=== PATIENT | male | born 1955 | race Caucasian/White ===

== ENCOUNTER → 2020-11-23 | Outpatient (CLI) | payer OTHER ==
--- NOTE | 2020-11-23 11:21 | RAD ---
INDICATION: Reason: COUGH X 3 WEEKS / Spl. Instructions: / History: COMPARISON: None. FINDINGS: 2 view of chest obtained. Degenerative changes of the spine. Cardiac silhouette is unremarkable. Blunting of the costophrenic angles posteriorly. Patchy opacities in the bilateral lungs IMPRESSION: * Patchy opacities bilateral lungs could be secondary to bilateral infiltrate or edema. There is als o suspected small pleural effusions. Electronically signed by: Jakob Danielle MD (11/23/2020 11:19 AM) [id number]
== END ==
LOC: RAD 10:45
PROVIDERS: ATTEND Nurse Practitioner Family
DX: R05 Cough (principal)
CPT/HCPCS: 71046

== ENCOUNTER 2020-12-11 10:12 | Inpatient (IN) | payer OTHER ==
[~2020-12-11] VITALS: Ht 172.7 cm; Wt 87.4 kg
[2020-12-11] MEDS ORDERED: IOHEXOL 350 MG/ML 100 ML VIAL. IV ONE (10:30)
[2020-12-11] MEDS ORDERED: ASPIRIN 325 MG TABLET PO ONE (10:30)
--- NOTE | 2020-12-11 10:47 | EKG ---
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
[2020-12-11 10:54] LABS: CALCIUM 8.8 mg/dL (8.5-10.1); GFR 75.5; POTASSIUM 4.2 mmol/L (3.5-5.1)
[2020-12-11 10:55] LABS: BASO % 0 % (0-3); EOS % 0 % (0-3); HEMATOCRIT 44.1 % (39.0-53.0); HEMOGLOBIN 14.5 g/dL (13.0-17.5); LYMPH # 1.3 x10^3/uL (1.0-4.8); LYMPH % 21 % (24-48); MEAN CORPUSCULAR HEMOGLOBIN 33 pg (25-35); MEAN CORPUSCULAR HGB CONC 33 g/dL (31-37); MEAN CORPUSCULAR VOLUME 102 fL (79-100); MONO # 0.3 x10^3/uL (0.0-1.1); MONO % 5 % (0-9); NEUT # 4.7 x10^3uL (1.8-7.7); NEUT % 74 % (31-73); PLATELET COUNT 160 x10^3/uL (140-400); RED BLOOD COUNT 4.35 x10^6/uL (4.30-5.70); RED CELL DISTRIBUTION WIDTH 14.6 % (11.5-14.5); WHITE BLOOD COUNT 6.4 x10^3/uL (4.0-11.0)
--- NOTE | 2020-12-11 11:03 | PHYS DOC ---
Past History Past Medical History: No Pertinent History Past Surgical History: No Surgical History Smoking: Non-smoker Alcohol Use: None Drug Use: None General Adult EDM: Chief Complaint: SHORTNESS OF BREATH HPI: HPI: Patient is a 65 year old male who presents with 6 week history of shortness of breath and worsening dyspnea on exertion. He states he is now unable to walk across the room without becoming short of breath, however symptoms improve with rest. Patient is now having orthopnea and has been sleeping in his recliner for the past 2 days. He has also noticed some swelling in his bilateral lower extremities. Reports worsening cough as well with production of white sputum. He was diagnosed with pneumonia 3 weeks ago at an urgent care and was discharged with oral steroids and an antibiotic at that time. Reports taking all doses of the antibiotic. Denies fevers, chills, chest pain, or hemoptysis. Review of Systems: Review of Systems: Constitutional: Denies fever or chills Eyes: Denies redness or eye pain HENT: Denies nasal congestion or sore throat Respiratory: Reports shortness of breath, productive cough, dyspnea on exertion, and orthopnea. Cardiovascular: Denies chest pain or palpitations GI: Denies abdominal pain, nausea, or vomiting : Denies dysuria or hematuria Musculoskeletal: Reports bilateral LE swelling. Denies back pain or joint pain Integument: Denies rash or skin lesions Neurologic: Denies headache, focal weakness or sensory changes Complete systems were reviewed and found to be within normal limits, except as documented in this note. Current Medications: Current Meds: Current Medications Medications (Trade) Dose Ordered Sig/Dean Start Time Stop Time Status Last Admin Dose Admin Aspirin (Phil Aspirin) 325 mg 1X ONCE 12/11/20 10:30 12/11/20 10:37 DC 12/11/20 10:32 325 MG Iohexol (Omnipaque 350 Mg/ml) 100 ml 1X ONCE 12/11/20 10:30 12/11/20 10:37 DC Allergies: Allergies: Allergies Coded Allergies Type Severity Reaction Last Updated Verified No Known Drug Allergies 12/11/20 No Physical Exam: PE: Constitutional: Well developed, well nourished, no acute distress, non-toxic appearance HENT: Normocephalic, atraumatic Eyes: Conjunctiva normal, no discharge Neck: Normal range of motion, no tenderness, supple Lungs & Thorax: Decreased lung sounds at bilateral bases. No respiratory distress, equal chest rise and fall Abdomen: Soft, no tenderness Skin: Warm, dry, no erythema, no rash Back: No tenderness, no CVA tenderness Extremities: 2+ pitting edema in bilateral LE. No tenderness, ROM intact. Neurologic: Alert and oriented X 3, normal motor function, normal sensory function, no focal deficits noted Psychologic: Affect normal, judgment normal Current Patient Data: Vital Signs: Vital Signs Date Time Temp Pulse Resp B/P (MAP) Pulse Ox O2 Delivery O2 Flow Rate FiO2 12/11/20 10:23 98.0 115 34 129/82 97 Room Air EKG: EK BPM, normal sinus rhythm, no ST elevation, QRS 102ms. QTc 469ms Radiology/Procedures: Radiology/Procedures: PROCEDURE: CT ANGIOGRAPHY CHEST Exam Date: 12/11/2020 10:45 AM CTA CHEST Indication: Reason: SOA X 1 MONTH eval for PE / Spl. Instructions: / History: . TECHNIQUE: CT angiogram of the chest was performed following the administration of nonionic intravenous contrast for evaluation of pulmonary embolus. 3D MIPs were created and reviewed on an independent workstation to assist in diagnosis and clinical management. One or more of the following dose reduction techniques were utilized: *Automated exposure control (AEC) *Adjustment of mA and/or kV according to patient size *Use of iterative reconstruction technique *CT scan done according to ALARA, or ALARA/IMAGE GENTLY COMPARISON: Radiographs from November 23, 2020 FINDINGS: There is adequate opacification of the pulmonary arteries. No central intravascular filling defects are appreciated. There is no evidence for central pulmonary embolus. The aorta is normal in caliber without evidence for dissection. Aortic calcifications are present. The heart is normal in size without pericardial effusion. Coronary artery calcifications are present. The visualized thyroid gland is within normal limits. No lymphadenopathy is seen. There are moderate bilateral pleural effusions, right larger than left, with compressive atelectasis of the lower lobes. Mild emphysematous changes are noted. No pneumothorax. The central airways are patent. Images of the upper abdomen demonstrate calcified granulomas in the spleen. Degenerative changes are seen in the spine. IMPRESSION: No evidence for central pulmonary embolus. Electronically signed by: Konstantin Coughlin MD (12/11/2020 11:29 AM) [id number] Heart Score: C/O Chest Pain: N/A Course & Med Decision Making: Course & Med Decision Making Pertinent Labs and Imaging studies reviewed. (See chart for details) 65 year old male presents with 6 week history of shortness of breath. EKG stable. Labs obtained and posted to chart. Troponin WNL. BNP >5000 and CTA revealed bilateral pleural effusions consistent with concern for new onset CHF. Patient started on IV Lasix while in the ED. Patient requiring admission for further evaluation and treatment. Discussed with Dr. Hollins (hospitalist) who is in agreement with admission. Discussed findings and plan with patient and friend, who acknowledge understanding and agreement. Dragon Disclaimer: Dragon Disclaimer: This electronic medical record was generated, in whole or in part, using a voice recognition dictation system. Departure Departure: Impression: Primary Impression: Dyspnea Qualified Codes: R06.00 - Dyspnea, unspecified Additional Impressions: Elevated brain natriuretic peptide (BNP) level Pleural effusion Disposition: ADMITTED INPATIENT Admitting Physician: Benny Hollins Condition: STABLE Referrals: PCP,UNKNOWN (PCP) MALIK ORNELAS DO Dec 11, 2020 11:03
[2020-12-11 11:08] LABS: ALBUMIN 3.4 g/dL (3.4-5.0); MAGNESIUM 1.9 mg/dL (1.8-2.4); TOTAL PROTEIN 6.8 g/dL (6.4-8.2)
--- NOTE | 2020-12-11 11:32 | RAD ---
Exam Date: 12/11/2020 10:45 AM CTA CHEST Indication: Reason: SOA X 1 MONTH eval for PE / Spl. Instructions: / History: . TECHNIQUE: CT angiogram of the chest was performed following the administration of nonionic intrave nous contrast for evaluation of pulmonary embolus. 3D MIPs were created and reviewed on an [employer] workstation to assist in diagnosis and clinical management. One or more of the following dose red uction techniques were utilized: *Automated exposure control (AEC) *Adjustment of mA and/or kV according to patient size *Use of iterative reconstruction technique *CT scan done according to ALARA, or ALARA/IMAGE GENTLY COMPARISON: Radiographs from November 23, 2020 FINDINGS: There is adequate opacification of the pulmonary arteries. No central intravascular filling defects are appreciated. There is no evidence for central pulmonary embolus. The aorta is normal in caliber without evidence for dissection. Aortic calcifications are present. The heart is normal in size without pericardial effusion. Coronary artery calcifications are present . The visualized thyroid gland is within normal limits. No lymphadenopathy is seen. There are moderate bilateral pleural effusions, right larger than left, with compressive atelectasis of the lower lobes. Mild emphysematous changes are noted. No pneumothorax. The central airways are patent. Images of the upper abdomen demonstrate calcified granulomas in the spleen. Degenerative changes are seen in the spine. IMPRESSION: No evidence for central pulmonary embolus. Electronically signed by: Konstantin Coughlin MD (12/11/2020 11:29 AM) [id number]
[2020-12-11] MEDS ORDERED: FUROSEMIDE 40 MG/4 ML VIAL IVP ONE ×2 (11:45→12:15)
[2020-12-11 13:03] VITALS: BP 122/83
--- NOTE | 2020-12-11 14:09 | HP ---
ADMIT DATE: 12/11/2020 ATTENDING PHYSICIAN: Dr. Hollins. CHIEF COMPLAINT: Shortness of breath. HISTORY OF PRESENT ILLNESS: The patient is a 65-year-old gentleman with no local physician. He presents to the ED with a gradual worsening symptoms of ____ dyspnea with exertion also at rest, significant orthopnea, pedal edema, increased abdominal girth and a nonproductive cough. He had a CT done in the ED, which showed cardiomegaly, bilateral pleural effusions. He also has pedal edema and clinically appears well. He was given IV Lasix. His BNP is elevated. He is admitted then with exacerbation of CHF that is new. PAST MEDICAL HISTORY: Significant for significant alcohol use. He downplays it but he probably drinks on a regular basis. In addition, he is a smoker packs of cigarettes or more daily. He is not on any medications. He denies any chest pain, palpitations. He has not been able to sleep at night. ALLERGIES: He has no recorded drug allergies. FAMILY HISTORY: Mom is still alive at age 80. Father is of unknown causes. He is employed at [employer]. He is and lives with his . REVIEW OF SYSTEMS: Significant for the pedal edema, dyspnea with minimal exertion, dry nonproductive cough. He has orthopnea. He has been sleeping in a chair, unable to lay flat. No nausea or vomiting. He denied any palpitations, syncope. All other systems reviewed and turned to be negative. PHYSICAL EXAMINATION: GENERAL: When I saw him, this is a pleasant middle-aged gentleman. INITIAL VITAL SIGNS: Showed a blood pressure of 123/88. He is afebrile, pulse 110 and regular, oxygen saturation 96% on room air. HEENT: Head is without trauma. Pupils are reactive. Sclerae are nonicteric. Oropharynx is clear. NECK: Supple, no bruits identified. LUNGS: Show diminished breath sounds at both bases. Good airway movement of upper airways. CARDIOVASCULAR: Showed distant heart tones. No obvious gallops. Peripheral pulses are palpable and full. ABDOMEN: Obese, protuberant. No organomegaly. Bowel sounds were hypoactive. EXTREMITIES: Showed no cyanosis or edema. He does have 2+ pitting edema extending all the way up to past his knee. SKIN: Warm and dry. NEUROLOGIC: Function focally intact. PERTINENT LABORATORY STUDIES: Hemoglobin is 14.5 g/dL, white count 6400. MCV is 102 consistent with chronic alcohol use. Nonfasting blood sugar 244. Electrolytes within normal range. Creatinine is 1.0 mg percent. Troponin first set was 0.02, below the limits of normal. BNP was 5000. CT of the chest as noted. ASSESSMENT: 1. A 65-year-old gentleman with congestive heart failure, acute. 2. Probable alcoholic cardiomyopathy, the so-called holiday heart syndrome. 3. Chronic alcoholism. 4. Chronic obstructive pulmonary disease with tobacco addiction. 5. Diabetes by exam type 2. PLAN: 1. Admit to the inpatient unit. 2. Diuresis with Lasix twice a day. 3. Daily weights. 4. Fluid restriction. 5. Afterload and preload reduction in the form of Lasix and lisinopril. 6. Followup blood sugars. 7. Serial chemistries. 8. Echocardiogram. DIMPLE/BRY DR: Ze TID: [id number]
[2020-12-11 15:03] VITALS: BP 114/78
--- NOTE | 2020-12-11 17:13 | PDOC2 ---
CONSULT DOS: DATE: 12/11/20 TIME: 17:06 Reason for Consult: Congestive heart failure Referring Physician: Dr. Hollins Chief Complaint Shortness of breath Source: Chart review, Patient Problem List Problems Medical Problems: (1) Acute CHF Status: Acute (2) Dyspnea Status: Acute (3) Elevated brain natriuretic peptide (BNP) level Status: Acute (4) Pleural effusion Status: Acute History of Present Illness 65-year-old male without any previous cardiac history presented with approximately 6 weeks history of progressive shortness of breath on exertion. Lately, he has been having orthopnea and bilateral lower extremity edema. He denied any chest pain, palpitations or syncope. Of note, he was diagnosed with pneumonia 3 weeks ago at an urgent care center and prescribed steroids and antibiotics. Past Medical History Alcohol abuse Past Surgical History: No pertinent history Family History Negative for premature coronary artery disease Social History Patient admitted to drinking approximately 18 pack beers per week, mostly binging and then giving gaps, smoking cigarettes but denied any drug abuse. Current Medications Current Medications Aspirin (Phil Aspirin) 325 mg 1X ONCE PO Last administered on 12/11/20at 10:32; Start 12/11/20 at 10:30; Stop 12/11/20 at 10:37; Status DC Iohexol (Omnipaque 350 Mg/ml) 100 ml 1X ONCE IV Last administered on 12/11/20at 10:58; Start 12/11/20 at 10:30; Stop 12/11/20 at 10:37; Status DC Furosemide (Lasix) 40 mg 1X ONCE IVP Last administered on 12/11/20at 11:50; Start 12/11/20 at 11:45; Stop 12/11/20 at 11:46; Status DC Furosemide (Lasix) 80 mg 1X ONCE IVP Last administered on 12/11/20at 13:06; Start 12/11/20 at 12:15; Stop 12/11/20 at 12:16; Status DC Furosemide (Lasix) 80 mg BID IVP ; Start 12/11/20 at 21:00 Potassium Chloride (Klor-Con) 20 meq BID PO ; Start 12/11/20 at 21:00 Lisinopril (Prinivil) 10 mg DAILY PO ; Start 12/12/20 at 09:00 Allergies: Coded Allergies: No Known Drug Allergies (Unverified , 12/11/20) PSYCHOLOGICAL ROS: No: Hallucinations Eyes: No: Loss of vision HEENT: No: Epistaxis Respiratory: YES: Orthopnea, Shortness of breath; No: Hemoptysis Cardiovascular: No: Chest Pain Gastrointestinal: No: Vomiting Genitourinary: No: Henaturia Neurological: No: Seizures Skin: No: Rash General: Alert HEENT: Atraumatic Lungs: Other (Decreased air entry bases and bilateral scattered crepitations) Heart: Regular rate Abdomen: Soft Extremities: Other (2+ pitting pedal edema) Neuro: Normal speech VITALS Vital Signs Date Time Temp Pulse Resp B/P (MAP) Pulse Ox O2 Delivery O2 Flow Rate FiO2 12/11/20 16:05 Room Air 12/11/20 15:03 97.7 112 20 114/78 (90) 97 12/11/20 12:25 94.0 Labs Laboratory Tests Test 12/11/20 10:25 12/11/20 16:29 White Blood Count 6.4 x10^3/uL (4.0-11.0) Red Blood Count 4.35 x10^6/uL (4.30-5.70) Hemoglobin 14.5 g/dL (13.0-17.5) Hematocrit 44.1 % (39.0-53.0) Mean Corpuscular Volume 102 fL (79-100) Mean Corpuscular Hemoglobin 33 pg (25-35) Mean Corpuscular Hemoglobin Concent 33 g/dL (31-37) Red Cell Distribution Width 14.6 % (11.5-14.5) Platelet Count 160 x10^3/uL (140-400) Neutrophils (%) (Auto) 74 % (31-73) Lymphocytes (%) (Auto) 21 % (24-48) Monocytes (%) (Auto) 5 % (0-9) Eosinophils (%) (Auto) 0 % (0-3) Basophils (%) (Auto) 0 % (0-3) Neutrophils # (Auto) 4.7 x10^3uL (1.8-7.7) Lymphocytes # (Auto) 1.3 x10^3/uL (1.0-4.8) Monocytes # (Auto) 0.3 x10^3/uL (0.0-1.1) Eosinophils # (Auto) 0.0 x10^3/uL (0.0-0.7) Basophils # (Auto) 0.0 x10^3/uL (0.0-0.2) Sodium Level 137 mmol/L (136-145) Potassium Level 4.2 mmol/L (3.5-5.1) Chloride Level 101 mmol/L (98-107) Carbon Dioxide Level 26 mmol/L (21-32) Anion Gap 10 (6-14) Blood Urea Nitrogen 11 mg/dL (8-26) Creatinine 1.0 mg/dL (0.7-1.3) Estimated GFR (Cockcroft-Gault) 75.5 BUN/Creatinine Ratio 11 (6-20) Glucose Level 244 mg/dL (70-99) Calcium Level 8.8 mg/dL (8.5-10.1) Magnesium Level 1.9 mg/dL (1.8-2.4) Total Bilirubin 1.0 mg/dL (0.2-1.0) Aspartate Amino Transf (AST/SGOT) 21 U/L (15-37) Alanine Aminotransferase (ALT/SGPT) 29 U/L (16-63) Alkaline Phosphatase 115 U/L (46-116) Creatine Kinase 86 U/L (39-308) Creatine Kinase MB (Mass) 2.2 ng/mL (0.0-3.6) Creatine Kinase MB Relative Index 2.6 % (0-4) Troponin I Quantitative 0.024 ng/mL (0-0.055) IS-Ytz-B-Type Natriuretic Peptide 5046 pg/mL (0-124) Total Protein 6.8 g/dL (6.4-8.2) Albumin 3.4 g/dL (3.4-5.0) Albumin/Globulin Ratio 1.0 (1.0-1.7) Lipase 81 U/L (73-393) Glucose (Fingerstick) 171 mg/dL (70-99) Assessment/Plan 1. Congestive heart failure, most probably acute on chronic systolic. Continue diuresis with Lasix. Check 2D echo to assess LV systolic function. Ischemic evaluation in the form of stress test could be considered as an outpatient. 2. Alcohol and tobacco abuse: Advised on complete cessation. Monitor for withdrawal. Thank you for your consultation. ALISE GRESHAM MD Dec 11, 2020 17:13
[2020-12-11 18:53] VITALS: BP 114/79
--- NOTE | 2020-12-11 19:32 | NUR ---
Admission note PT admitted into room 120 via ems at 1250 .
[2020-12-11] MEDS: FUROSEMIDE 40 MG/4 ML VIAL IVP SCH (21:19)
[2020-12-11] MEDS: POTASSIUM CHLORIDE 20 MEQ TABLET.ER. PO SCH (21:19)
[2020-12-11 23:00] VITALS: BP 102/67
[2020-12-12 01:08] LABS: HEMOGLOBIN A1C 8.1 % (4.8-5.6)
[2020-12-12 05:45] VITALS: BP 113/75
[2020-12-12 06:28] LABS: CALCIUM 8.6 mg/dL (8.5-10.1); GFR 75.5; POTASSIUM 3.8 mmol/L (3.5-5.1)
[2020-12-12] MEDS: POTASSIUM CHLORIDE 20 MEQ TABLET.ER. PO SCH (08:39)
[2020-12-12] MEDS: FUROSEMIDE 40 MG/4 ML VIAL IVP SCH (08:41)
--- NOTE | 2020-12-12 08:59 | PDOC ---
CARDIO Progress Notes Date & Time Date of Service DATE: 12/12/20 TIME: 08:57 Time of Evaluation 08:57 Subjective Notes Swelling and SOA improved Vitals Vitals Vital Signs Date Time Temp Pulse Resp B/P (MAP) Pulse Ox O2 Delivery O2 Flow Rate FiO2 12/12/20 08:40 108 113/75 12/12/20 05:45 98.0 18 92 Room Air 12/11/20 12:25 94.0 Weight Weight [ ] Input and Output I.O. Intake and Output 12/12/20 07:00 Intake Total 880 ml Output Total 6400 ml Balance -5520 ml Intake Oral 880 ml Output Urine Total 6400 ml Laboratory Labs Laboratory Tests Test 12/11/20 10:25 12/11/20 16:29 12/11/20 21:34 12/12/20 05:47 White Blood Count 6.4 x10^3/uL (4.0-11.0) Red Blood Count 4.35 x10^6/uL (4.30-5.70) Hemoglobin 14.5 g/dL (13.0-17.5) Hematocrit 44.1 % (39.0-53.0) Mean Corpuscular Volume 102 fL (79-100) Mean Corpuscular Hemoglobin 33 pg (25-35) Mean Corpuscular Hemoglobin Concent 33 g/dL (31-37) Red Cell Distribution Width 14.6 % (11.5-14.5) Platelet Count 160 x10^3/uL (140-400) Neutrophils (%) (Auto) 74 % (31-73) Lymphocytes (%) (Auto) 21 % (24-48) Monocytes (%) (Auto) 5 % (0-9) Eosinophils (%) (Auto) 0 % (0-3) Basophils (%) (Auto) 0 % (0-3) Neutrophils # (Auto) 4.7 x10^3uL (1.8-7.7) Lymphocytes # (Auto) 1.3 x10^3/uL (1.0-4.8) Monocytes # (Auto) 0.3 x10^3/uL (0.0-1.1) Eosinophils # (Auto) 0.0 x10^3/uL (0.0-0.7) Basophils # (Auto) 0.0 x10^3/uL (0.0-0.2) Sodium Level 137 mmol/L (136-145) 143 mmol/L (136-145) Potassium Level 4.2 mmol/L (3.5-5.1) 3.8 mmol/L (3.5-5.1) Chloride Level 101 mmol/L (98-107) 103 mmol/L (98-107) Carbon Dioxide Level 26 mmol/L (21-32) 31 mmol/L (21-32) Anion Gap 10 (6-14) 9 (6-14) Blood Urea Nitrogen 11 mg/dL (8-26) 13 mg/dL (8-26) Creatinine 1.0 mg/dL (0.7-1.3) 1.0 mg/dL (0.7-1.3) Estimated GFR (Cockcroft-Gault) 75.5 75.5 BUN/Creatinine Ratio 11 (6-20) Glucose Level 244 mg/dL (70-99) 129 mg/dL (70-99) Hemoglobin A1c 8.1 % (4.8-5.6) Calcium Level 8.8 mg/dL (8.5-10.1) 8.6 mg/dL (8.5-10.1) Magnesium Level 1.9 mg/dL (1.8-2.4) Total Bilirubin 1.0 mg/dL (0.2-1.0) Aspartate Amino Transf (AST/SGOT) 21 U/L (15-37) Alanine Aminotransferase (ALT/SGPT) 29 U/L (16-63) Alkaline Phosphatase 115 U/L (46-116) Creatine Kinase 86 U/L (39-308) Creatine Kinase MB (Mass) 2.2 ng/mL (0.0-3.6) Creatine Kinase MB Relative Index 2.6 % (0-4) Troponin I Quantitative 0.024 ng/mL (0-0.055) KC-Xre-O-Type Natriuretic Peptide 5046 pg/mL (0-124) Total Protein 6.8 g/dL (6.4-8.2) Albumin 3.4 g/dL (3.4-5.0) Albumin/Globulin Ratio 1.0 (1.0-1.7) Lipase 81 U/L (73-393) Glucose (Fingerstick) 171 mg/dL (70-99) 184 mg/dL (70-99) Test 12/12/20 07:29 Glucose (Fingerstick) 122 mg/dL (70-99) Physical Exams HEENT: Neck Supple W Full Motion Chest: Symmetric Lungs: Clear to Auscultation Heart: RRR Abdomen: Soft N/T Extremities: Other (trace bilateral LE edema ) Neurology: alert, oriented, follow commands Assessment Assessment 1. CHF, most probably acute on chronic systolic. improved s/p Lasix. Check 2D echo to assess LV systolic function. Ischemic evaluation in the form of stress test could be considered as an outpatient. 2. Alcohol and tobacco abuse: Advised on complete cessation. 3. Probable COPD with long-standing h/o tobaccoism 4. Diabetes, II; new diagnosis. HgA1c 8.1. as per IM Recommendations Echo to assess LV systolic function Add Toprol Continue lisinopril Outpatient ischemic evaluation Discussed 1999ccFR, 2Gm Na diet, and daily weight monitoring Contacted patient post discharge to decrease lisinopril to 10mg daily and added Toprol 12.5mg daily. GEORGES BLANCO APRN Dec 12, 2020 08:59
[2020-12-12] MEDS ORDERED: LISINOPRIL 10 MG TABLET PO SCH (09:00)
--- NOTE | 2020-12-12 09:58 | DS ---
DATE OF DISCHARGE: 12/12/2020 ATTENDING PHYSICIAN: Dr. Hollisn. FINAL DISCHARGE DIAGNOSES: 1. Acute on chronic congestive heart failure, most likely systolic. 2. Alcoholic cardiomyopathy. 3. So called holiday heart syndrome. 4. Chronic alcoholism. 5. COPD with continued tobacco addiction. 6. New onset diabetes type 2. HISTORY AND PHYSICAL: The patient is a 65-year-old gentleman admitted through the ED with increasing shortness of breath, orthopnea, pedal edema, abdominal swelling and signs of congestive heart failure. He has a dilated enlarged heart on CT and x-ray. He also has bilateral pleural effusions. He also has new onset diabetes with a hemoglobin A1c of 8.1. He was admitted for treatment of acute on chronic congestive heart failure. PHYSICAL EXAMINATION: Please see my dictated note. PERTINENT LABORATORY AND X-RAY STUDIES: Admission hemoglobin was 14.5 g/dL, white count 6400. Telltale signs of an MCV was 102. Chemistry panel showed stable creatinine of 1.0 mg/dL. Hemoglobin A1c was 8.1. Glucose fingerstick on admission was 171, repeated the next day was down to 122. Potassium 3.8 mEq. Admission liver panel was unremarkable. Cardiac enzymes were negative for coronary ischemia. BNP was elevated at 5046. COURSE IN HOSPITAL: The patient was admitted. He was started on intravenous Lasix with marked improvement. We were able to diurese 14 pounds in the 1 day that he was here. I estimated another extra 10 pounds or more excess fluid. He was feeling so much better, he wanted to go home. He got a better night sleep. Ankle swelling was down and abdominal swelling was down. We had Cardiology see him and Dr. De La Cruz saw the patient and felt that it was reasonable to treat him medically for now with preload and afterload reduction. In addition, he recommended an outpatient nuclear medicine stress test. I ordered an echocardiogram, but he wants to get that done as an outpatient, so reluctantly on the second hospital day, he wanted to go home. I wrote scripts for lisinopril 20 mg p.o. daily, Lasix 80 mg p.o. in the morning, K-Dur 20 mEq daily, and metformin 1000 mg p.o. daily. His has got him scheduled to see Dr. Link as a new patient for followup visit on 12/25/2020, I hope he will keep the appointment. In addition, he can have establishment with the PCP and arrange for Cardiology follow up, whether Dr. Link wants through Dr. 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 The patient was then discharged from our hospital in stable condition with explicit drug and followup care. TOTAL DISCHARGE TIME SPENT: [address]: Ze TID: [id number]
[2020-12-12 11:24] VITALS: BP 97/68
--- NOTE | 2020-12-12 13:34 | NUR ---
discharge note Pt discharged at 1333 via ambulation accompanied by staff. pt given written and verbal instructions for discharge with verbal statement of understanding received
--- NOTE | 2020-12-12 15:19 | CARD ---
MR#: [id number] Date of Study: 12/12/2020 Ordering Physician: OLEG TALLEY, Referring Physician: OLEG TALLEY, Tech: Andreia Marsh, [facility] APPROVED REPORT EXAM: Two-dimensional and M-mode echocardiogram with Doppler and color Doppler. Other Information Quality : AverageHR: 103bpm INDICATION Dyspnea Congestive Heart Failure RISK FACTORS Smoking 2D DIMENSIONS Left Atrium(2D)4.8 (1.6-4.0cm)IVSd0.9 (0.7-1.1cm) Aortic Root(2D)2.9 (2.0-3.7cm)LVDd6.1 (3.9-5.9cm) LVOT Diameter2.0 (1.8-2.4cm)PWd1.2 (0.7-1.1cm) LVDs4.8 (2.5-4.0cm)FS (%) 21.7 % SV80.9 mlLVEF(%)33.2 (>50%) Aortic Valve AoV Peak Baljinder.369.6cm/sAoV VTI68.4cm AO Peak GR.54.6mmHgLVOT Peak Baljinder.53.4cm/s LVOT VTI 12.18cmAO Mean GR.37mmHg ADRI (VMAX)0.28az3PDB (VTI)0.57cm2 Mitral Valve MV E Uazfjmzw972.3cm/sMV E Peak Gr.103mmHg MV DECEL [id number] A Wejqzfyu24.5cm/s E/A Ratio4.0 Pulmonary Valve PV Peak Cscdpicu00.3cm/sPV Peak Grad.3mmHg Tricuspid Valve TR P. Nnwitkal058oc/sRAP [id number] TR Peak Gr.56igZiHQSL11frLv LEFT VENTRICLE The Left Ventricle is mildly dilated. There is borderline to mild concentric left ventricular hypertr ophy. The left ventricular systolic function is severely impaired. The Ejection Fraction is 20-25%. T here is severe global hypokinesis of the left ventricle. Tissue Doppler imaging reveals moderate to s evere left ventricular diastolic dysfunction. RIGHT VENTRICLE The right ventricle is mildly dilated. There is normal right ventricular wall thickness. Systolic fun ction is mildly reduced. ATRIA The left atrium is moderately dilated. The right atrium size is normal. The interatrial septum is int act with no evidence for an atrial septal defect or patent foramen ovale as noted on 2-D or Doppler i maging. AORTIC VALVE The aortic valve is calcified and displays decreased opening. Doppler and Color Flow revealed trace t o mild aortic regurgitation. Calculated aortic valve area is .6 cm2 with maximum pressure gradient of 55 mmHg and mean pressure gradient of 37 mmHg. There is moderate valvular aortic stenosis. MITRAL VALVE The mitral valve is normal in structure and function. There is no evidence of mitral valve prolapse. There is no mitral valve stenosis. Doppler and Color-flow revealed mild mitral regurgitation. TRICUSPID VALVE The tricuspid valve is normal in structure and function. Doppler and Color Flow revealed trace tricus pid regurgitation with an estimated PAP of 28 mmHg. There is no tricuspid valve stenosis. PULMONIC VALVE The pulmonic valve is not well visualized. Doppler and Color Flow revealed trace pulmonic valvular re gurgitation. GREAT VESSELS The aortic root is normal in size. The ascending aorta is borderline in size measuring 3.7 cm. The IV C is normal in size and collapses >50% with inspiration. PERICARDIAL EFFUSION There is no evidence of significant pericardial effusion. Critical Notification Physician Notified Date: 12/12/2020 Physician Name:Renetta Samano Critical Value: Yes <Conclusion> The left ventricular systolic function is severely impaired. The Ejection Fraction is 20-25%. Tissue Doppler imaging reveals moderate to severe left ventricular diastolic dysfunction. Moderate valvular aortic stenosis with maximum pressure gradient of 55 mmHg and mean pressure gradien t of 37 mmHg. Mild mitral regurgitation. Trace tricuspid regurgitation with an estimated PAP of 28 mmHg. There is no evidence of significant pericardial effusion. Signed by : Milad De La Cruz, Electronically Approved : 12/12/2020 15:18:56
[2020-12-12] MEDS ORDERED: LISI10TA16 PO (17:16)
[2020-12-12] MEDS ORDERED: ASPI-889 PO (17:16)
[2020-12-12] MEDS ORDERED: FURO-68 PO (17:16)
[2020-12-12] MEDS ORDERED: METO25TA2 PO (17:16)
[2020-12-12] MEDS ORDERED: POTA20TA4 PO (17:16)
== END 2020-12-12 13:37 | disposition home or self-care (01) | DRG 314 ==
LOC: ER 10:12 → 1 SOUTH 12:00 → ER 12:38
PROVIDERS: ADMIT Hospitalist; ATTEND Hospitalist
DX: I42.6 Alcoholic cardiomyopathy (principal); I50.23 Acute on chronic systolic (congestive) heart failure; F17.210 Nicotine dependence, cigarettes, uncomplicated; F10.20 Alcohol dependence, uncomplicated; J44.9 Chronic obstructive pulmonary disease, unspecified; E11.9 Type 2 diabetes mellitus without complications; Z87.01 Personal history of pneumonia (recurrent)
CPT/HCPCS: 36415; 71275; 80048; 80053; 82553; 82947; 83036; 83690; 83735; 83880; 84484; 85025; 93005; 93306; 96374; 96376; J1940; Q9967; 99285-25

== ENCOUNTER → 2021-02-16 | Outpatient (CLI) | payer OTHER ==
[~2021-02-16] MED LIST: ASPI-889 PO; FURO-68 PO; LISI10TA16 PO; METO25TA2 PO; POTA20TA4 PO
--- NOTE | 2021-02-16 15:23 | RAD ---
EXAMINATION: XR CHEST 2V CLINICAL HISTORY: Cough EXAM DATE/TIME: 02/16/2021 9:35 AM COMPARISON: 11/24/2019 FINDINGS: Lines, Tubes, and Devices: None. Cardiomediastinal Silhouette: Heart size at upper limits of normal. Aortic atherosclerotic calcificat ion. Lungs and Pleura: Mild ill-defined opacities in the bilateral mid to lower lung zones. Probable small bilateral pleural effusions. No pneumothorax. Bones and Soft Tissues: Degenerative changes in the thoracic spine. IMPRESSION: Bilateral airspace disease and probable small pleural effusions as described. Electronically signed by: Jas Goddard DO (02/16/2021 3:20 PM) JOSEPH
== END ==
LOC: RAD 09:27
PROVIDERS: ATTEND Internal Medicine
DX: I50.41 Acute combined systolic (congestive) and diastolic (congestive) heart failure (principal); I70.0 Atherosclerosis of aorta; M47.814 Spondylosis without myelopathy or radiculopathy, thoracic region
CPT/HCPCS: 71046